=== PATIENT | female | born 1965 | race Caucasian/White ===

== ENCOUNTER 2019-01-16 08:00 | Outpatient (RCR) | payer OTHER, SELFPAY | END 2019-01-16 23:59 | disposition home or self-care (01) | LOC: ANHAUDIO 08:00 | DX: Z46.1 Encounter for fitting and adjustment of hearing aid (principal) | CPT/HCPCS: 99199; V5160; V5261 ==

== ENCOUNTER 2020-07-16 11:30 | Outpatient (RCR) | payer OTHER, SELFPAY | END 2020-07-16 23:59 | disposition home or self-care (01) | LOC: ANHAUDIO 11:30 | DX: Z46.1 Encounter for fitting and adjustment of hearing aid (principal) | CPT/HCPCS: 99199 ==

== ENCOUNTER 2021-01-16 09:26 | Emergency (ER) | payer OTHER, SELFPAY ==
--- NOTE | ~2021-01-16 | XR_ITS ---
EXAMINATION: XR hand RT min 3V EXAM DATE: 01/16/2021 09:44 INDICATION: Hyperextension Injury, Generalized Tightness,1st Digit Pain. TECHNIQUE: Right hand frontal, lateral and oblique projections obtained and reviewed. There is no pr ior study for comparison. FINDINGS: Right metacarpal bones are unremarkable. There are no acute fractures or dislocations iden tified. There is no subcutaneous gas. The soft tissue is unremarkable. There are no radiopaque fo reign bodies. IMPRESSION: No acute osseous findings. Reviewed, dictated and finalized at location B. SOLICITOR IMPRESSION: No acute osseous findings.
[2021-01-16 09:35] VITALS: BP 108/53; PULSE 70; RESP 16; TEMP 36.6; O2SAT 100
--- NOTE | 2021-01-16 09:46 | ED.UPPEXIN ---
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 patient states a case of bottled water was coming down a conveyer belt and she tried to stop it from falling and injured her right hand. She has discomfort to the lateral area of her hand and along the thumb region with increase pain with movement. She reports that she also has pain in domínguez aspect of hand radiating into forearm ulnar side when she hyperextends her wrist. Patient denies any tingling or numbness to her right fingers or hand, nail beds have brisk capillary refill, right radial pulse strong. Patient has applied ice to her hand for swelling and comfort. MD complaint: injury to: right and hand Other Extremity Injury: Right: hand Other injuries: none Handedness: right Place: work Related Data Home Medications Medication Instructions Recorded Confirmed anastrozole 1 mg PO DAILY 01/16/21 01/16/21 atorvastatin 20 mg PO DAILY 01/16/21 01/16/21 empagliflozin [Jardiance] 10 mg PO DAILY 01/16/21 01/16/21 levothyroxine 137 mcg PO DAILY 01/16/21 01/16/21 metformin 1,000 mg PO DAILY 01/16/21 01/16/21 oxybutynin chloride 5 mg PO DAILY 01/16/21 01/16/21 quetiapine 25 mg PO BID 01/16/21 01/16/21 Allergies Allergy/AdvReac Type Severity Reaction Status Date / Time codeine Allergy Severe Anaphylaxis Unverified 01/16/21 10:04 Penicillins Allergy Severe Anaphylaxis Unverified 01/16/21 10:04 Review of Systems Review of Systems: CONSTITUTIONAL: Denies fever, chills, or sweats. EYES: Denies visual changes, redness, or discharge. ENT: Denies rhinorrhea, congestion, sore throat, or otalgia. CARDIOVASCULAR: Denies chest pain, palpitations, or edema. RESPIRATORY: Denies cough or dyspnea. GASTROINTESTINAL: Denies abdominal pain, nausea, vomiting, or diarrhea. GENITOURINARY: Denies dysuria or hematuria. SKIN: Denies rash or itching. MUSCULOSKELETAL: Denies back pain, positive for right hand pain, or myalgia. NEUROLOGIC: Denies headache, numbness, or weakness. PSYCHIATRIC: Denies anxiety or depression. All systems reviewed & are unremarkable except as noted in HPI and below PMFSH Past Medical History Medical History (Updated 01/16/21 @ 10:58 by Rajani Swanson NP) Breast cancer Depression Diabetes Elevated cholesterol Hypothyroid Surgical History Surgical History (Updated 01/16/21 @ 10:58 by Rajani Swanson NP) H/O partial thyroidectomy H/O tubal ligation History of ear surgery X4 History of lumpectomy of right breast radiation History of removal of cyst face Hx of cholecystectomy Hx of tonsillectomy Family History Family History (Updated 01/16/21 @ 10:21 by Rajani Swanson NP) Father Diabetes mellitus Hypertension Lung cancer Mother Diabetes mellitus Sibling Diabetes mellitus Social History Social History (Updated 01/16/21 @ 10:57 by Rajani Swanson NP) Smoking packs per day: 1.5 Smoking cigarettes per day: 30.0 Years smoked: 36 Smoking pack-years: 54.00 Smoking status: Former smoker Additional smoking assessment comments: quit 2018 Alcohol intake: current Alcohol use details: rare social Substance use: never Living arrangements: with family Gender identity (if verbalized by the patient): Female Comments At time of signature, agree with nursing past medical, surgical, social and family history. There is no relevant family history pertinent to the presenting complaint Exam Narrative: GENERAL: Well-appearing, well-nourished, and in no acute distress. HEAD: Normocephalic, atra
== END 2021-01-16 10:18 | disposition home or self-care (01) ==
PROVIDERS: Emergency Provider Registered Nurse; PCP Nurse Practitioner Family
DX: S63.91XA Sprain of unspecified part of right wrist and hand, initial encounter (principal); E11.9 Type 2 diabetes mellitus without complications; E03.9 Hypothyroidism, unspecified; Z87.891 Personal history of nicotine dependence; X58.XXXA Exposure to other specified factors, initial encounter; Y99.0 Civilian activity done for income or pay
CPT/HCPCS: 73130; 99213; G0463

== ENCOUNTER 2021-11-17 09:36 | Outpatient (CLI) | payer OTHER, SELFPAY | END 2021-11-17 09:37 | disposition home or self-care (01) | LOC: ANHBWCAUD 09:37 | PROVIDERS: PCP Nurse Practitioner Family; Visit Provider Otolaryngology | DX: H90.3 Sensorineural hearing loss, bilateral (principal) | CPT/HCPCS: 92557; 92567 ==

== ENCOUNTER 2023-02-09 14:55 | Emergency (ER) | payer OTHER, SELFPAY ==
[2023-02-09 15:01] VITALS: BP 169/82; PULSE 73; RESP 16; TEMP 36.6; O2SAT 100
--- NOTE | 2023-02-09 15:25 | ED.GENADULT ---
HPI - General Adult General Chief complaint: Extremity Problem,Nontraumatic Stated complaint: right wrist pain Source: patient, RN notes reviewed and old records reviewed Mode of arrival: ambulatory Limitations: no limitations History of Present Illness HPI narrative: 58-year-old female presents to [facility] with complaint pain, swelling, redness on dorsal part of hand that started patient denies injury. MD complaint: Hand pain Related Data Home Medications Medication Instructions Recorded Confirmed anastrozole 1 mg tablet 1 mg PO DAILY 01/16/21 02/09/23 atorvastatin 20 mg tablet 20 mg PO DAILY 01/16/21 02/09/23 empagliflozin 10 mg tablet 10 mg PO DAILY 01/16/21 02/09/23 (Jardiance) levothyroxine 137 mcg tablet 137 mcg PO DAILY 01/16/21 02/09/23 metformin 1,000 mg tablet 1,000 mg PO DAILY 01/16/21 02/09/23 oxybutynin chloride 5 mg tablet 5 mg PO DAILY 01/16/21 02/09/23 quetiapine 25 mg tablet 25 mg PO BID 01/16/21 02/09/23 Allergies Allergy/AdvReac Type Severity Reaction Status Date / Time codeine Allergy Severe Anaphylaxis Verified 02/09/23 15:27 Penicillins Allergy Severe Anaphylaxis Verified 02/09/23 15:27 Review of Systems Constitutional: Constitutional: Reports no additional constitutional complaints, Denies body ache(s), Denies chills, Denies fatigue, Denies fever(s) and Denies headache(s) Eyes: Eyes: Reports no additional eye complaints and Denies blurry vision ENT: Reports system reviewed and no additional complaints, except as documented, Denies vertigo, Denies dizziness, Denies ear discharge, Denies otalgia, Denies facial pain, Denies headache(s), Denies nasal congestion, Denies nasal discharge, Denies sinus pain, Denies sinus pressure and Denies sore throat Cardiovascular: Cardiovascular: Reports no additional cardiovascular complaints, Denies chest pain, Denies chest pain at rest, Denies rapid heart rate and Denies dyspnea Respiratory: Respiratory: Reports no additional respiratory complaints, Denies chest congestion, Denies cough, Denies pain on inspiration, Denies pain with cough and Denies dyspnea Gastrointestinal: Gastrointestinal: Denies abdominal pain, Denies diarrhea, Denies nausea and Denies vomiting Musculoskeletal: Musculoskeletal: Reports as per HPI Comments: right hand pain or, swelling, redness Integumentary/Breasts: Skin/Breast: Denies rash Neurologic: Reports system reviewed and no additional complaints, except as documented, Denies vertigo, Denies dizziness and Denies headache(s) Endocrine: Endocrine: Denies fatigue [facility] Past Medical History Medical History Breast cancer Depression Diabetes Elevated cholesterol Hypothyroid Surgical History Surgical History H/O partial thyroidectomy H/O tubal ligation History of ear surgery X4 History of lumpectomy of right breast radiation History of removal of cyst face Hx of cholecystectomy Hx of tonsillectomy Family History Family History Father Diabetes mellitus Hypertension Lung cancer Mother Diabetes mellitus Sibling Diabetes mellitus Social History Social History Smoking packs per day: 1.5 Smoking cigarettes per day: 30.0 Years smoked: 36 Smoking pack-years: 54.00 Smoking status: Former smoker Additional smoking assessment comments: quit 2018 Alcohol intake: current Alcohol use details: rare social Substance use: never Living arrangements: with family Gender identity (if verbalized by the patient): Female Comments At the time of my signature, I reviewed and agree with the nursing past medical, surgical, social, and family history. There is no relevant family history pertinent to the patient complaint. Exam Const: General: cooperative, healthy appea
== END 2023-02-09 15:33 | disposition home or self-care (01) ==
PROVIDERS: Emergency Provider Registered Nurse; PCP Nurse Practitioner Family
DX: L03.113 Cellulitis of right upper limb (principal); E11.9 Type 2 diabetes mellitus without complications; E78.00 Pure hypercholesterolemia, unspecified; E03.9 Hypothyroidism, unspecified; F32.A Depression, unspecified; Z85.3 Personal history of malignant neoplasm of breast; Z90.89 Acquired absence of other organs
CPT/HCPCS: 99213; G0463

== ENCOUNTER 2023-10-18 10:30 | Outpatient (RCR) | payer SELFPAY | END 2024-01-03 23:59 | disposition home or self-care (01) | LOC: ANHBWCAUD 10:30 | PROVIDERS: PCP Nurse Practitioner Family | DX: Z46.1 Encounter for fitting and adjustment of hearing aid (principal) | CPT/HCPCS: 92593; 99199 ==